=== PATIENT | female | born 1950 | race Caucasian/White ===

== ENCOUNTER 2024-01-08 07:05 | Day surgery (SDC) | payer MEDICARE, SELFPAY ==
[2024-01-08 07:10] VITALS: BP 135/69; PULSE 76; RESP 16; TEMP 36.4; O2SAT 95
--- NOTE | 2024-01-08 07:47 | ANES.PREOP_ITS ---
General Info Date of Service Date Performed: 01/08/24 Height: 5 ft Weight: 47.3 kg Body Mass Index (BMI): 20.3 Surgical Procedure: Operation Date: 01/08/24 08:25 Proposed Procedure Side Surgeon p Cataract Extraction with IOL Implant Left Darron Yan MD Meds Allergies and Home Medications Allergies Allergy/AdvReac Type Severity Reaction Status Date / Time Influenza Virus Vaccines Allergy Other (See Verified 01/08/24 07:20 Comment) Home Medication Medication Instructions Recorded albuterol sulfate 90 mcg/actuation 2 inh inhalation Q4H PRN 01/06/24 aerosol inhaler (ProAir HFA) atorvastatin 10 mg tablet 10 mg PO DAILY 01/06/24 umeclidinium 62.5 mcg-vilanterol 1 inh inhalation DAILY 01/06/24 25 mcg/actuation powdr for inhalation (Anoro Ellipta) Current Visit Medications: Current Medications Generic Name Dose Route Start Last Admin Trade Name Freq PRN Reason Stop Dose Admin Acetaminophen 1,000 mg 01/08/24 06:00 Acetaminophen 500 Mg Tab PO 02/07/24 05:59 Q4H PRN PRN Balanced Salt Solution 500 ml 01/08/24 06:00 Balanced Salt Soln.-Plus 500 Ml Bag OP 02/07/24 05:59 DIRECTED ROSALINE Miscellaneous Medication 0 ml 01/08/24 06:00 Prednisolone 1%, Moxifloxacin 0.5%, Bromfenac 0.09% 5ml Btl OS 02/07/24 05:59 DIRECTED ROSALINE Miscellaneous Medication 0 ml 01/08/24 06:00 01/08/24 07:42 Tropicam./Phenyleph. 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 Non-toxic uninodular goiter Osteoarthrosis Sciatica Left shoulder tendonitis Left knee pain Insomnia Hypoxia HLD (hyperlipidemia) SIOBHAN (generalized anxiety disorder) Disorder of bone CAD (coronary artery disease) [place] lesion of lung COPD (chronic obstructive pulmonary disease) Abnormal weight loss Abdominal aortic ectasia unchanged from 03/2023 3.7cm x 3.8cm Surgical History Surgical History Hx of tubal ligation Hx of arthroscopic knee surgery Hx of colonoscopy Tobacco Smoking/Tobacco Use Status: Current every day Tobacco Type: cigarettes Alcohol Alcohol Intake: never Substance Use Substance use type: does not use Vital Signs and Lab Results Vital Signs Most Recent Vital Signs in EMR: Most Recent Vital Signs Temp Pulse Resp BP Pulse Ox 36.4 C L 76 16 135/69 95 01/08/24 07:10 01/08/24 07:10 01/08/24 07:10 01/08/24 07:10 01/08/24 07:10 Lab Results Blood Type / Crossmatch: No Data to Display Complete Blood Count: No Data to Display Complete Metabolic Panel: No Data to Display Liver Function Panel: No Data to Display Coagulation Panel: No Data to Display Cardiac Panel: No Data to Display Arterial Blood Gas: No Data to Display Venous Blood Gas: No Data to Display Pancreas Panel: No Data to Display Thyroid Panel: No Data to Display Infectious Disease: No Data to Display Blood Cultures: No Data to Display Toxicology Panel: No Data to Display Anesthesia Assessment and Plan Anesthesia History Personal History: No History of Anesthesia Complications Family History: No Family History of Anesthesia Complications Exercise Tolerance Exercise Tolerance: Metabolic Equivalents<4 Cardiac & Pulmonary Exam Cardiac Exam: Normal S1/S2 Heart Sounds Pulmonary Exam: Clear Bilateral Breath Sounds Implantable Cardiac Device Does patient have a Pacemaker or an ICD?: No Airway Exam Known Difficult Airway: No Mallampati Class: 1 Mouth Opening: Normal (> 3cm) Thyromental Distance: Greater than 3 cm Neck Range of Motion: Full ROM Neck Circumference: Normal Teeth Condition: Removable Dentures/Plates Upper, Removable Dentures/Plates Lower and Other (Few teeth on bottom) ASA Classification ASA Score: ASA 4 Emergency Case?: No NPO Status NPO Status: NPO Clears >2 hours, Solids >8 hours Anesthesia Plan Resuscitation Status: Full Code Anesthesia Technique: MAC Anesthesia Airway Planned: Natural Airway Monitors Used: Standard Monitors
[2024-01-08 08:14] VITALS: BMI 20.3
[2024-01-08] MEDS: Duovisc Viscoelastic System EACH 1 EACH (08:37)
[2024-01-08] MEDS: Lidocaine 1% Pres-Free 5 ML VIAL (08:38)
[2024-01-08] MEDS: Povidone-Iodine Ophth 30 ML BTL (08:41)
[2024-01-08] MEDS: Balanced Salt Soln.-PLUS 500 ML BAG OP (08:41)
[2024-01-08] MEDS: Tetracaine 0.5% 4 ML BTL OS (08:42)
[2024-01-08 09:00] VITALS: BP 156/63; PULSE 77; RESP 14; TEMP 36.3; O2SAT 95
--- NOTE | 2024-01-08 09:00 | ROE_ITS ---
Date of service: 01/08/24 Time of Service: 09:01 Operative Note Operative Note POST-OP DIAGNOSIS: same PROCEDURE: Cataract extraction using phacoemulsification with intraocular lens implant, left eye SURGEON: Darron Yan ANESTHESIA TYPE: Local By Surgeon and MAC Refer to Anesthesia Record PATHOLOGY: none sent COMPLICATIONS: None Patient was transported to: same day Patient's condition: stable Implants: Mukul Clareon [id number] Indications: Progressive decreased vision due to cataract, left eye Procedure Description: CATARACT SURGERY OPERATIVE REPORT PREOPERATIVE DIAGNOSIS: Nuclear cataract, left eye POSTOPERATIVE DIAGNOSIS: Same OPERATION: Cataract extraction using phacoemulsification with posterior chamber intraocular lens implant, left eye. IOL: IOL Chief Executive Or Managing Director/Model: Mukul Clareon [id number] IOL Power: + 20.0 diopters IOL Serial Number: [id number] Optic Diameter: 6.0mm Haptic/Overall Diameter: 13.0mm PHACO INFO: Mukul Centurion Vision System with OZil and Active Fluidics Cumulative Dispersed Energy (CDE): 11.82 seconds SURGEON: Darron Yan MD, SUMAYA ANESTHESIA: Monitored Anesthesia Care (MAC), with local sub-tenon's anesthetic infiltration COMPLICATIONS: None SPECIMENS: None INDICATIONS FOR PROCEDURE: The patient is a 73-year-old lady with history of diminished visual acuity in her left eye secondary to the development of nuclear cataract. She is significantly symptomatic that she desires cataract surgery and attempt to improve and maximize her vision. See office notes for detailed information. PROCEDURE: The correct surgical eye was identified and marked as the left eye and the pupil was dilated in the preoperative area using mydriatics and cycloplegics. The dilated pupil size was 6.0 mm. The patient elected to proceed without oral sedation. The patient was brought to the operating room where cardiopulmonary monitoring was instituted and surgical time-out was performed, confirming the correct operative eye and IOL power. Topical anesthesia was administered and ophthalmic povidone-iodine 5% was instilled into the conjunctival fornices. The ofe-ocular area was prepped with Betadine 10% solution and draped in the usual sterile fashion for intraocular surgery, including an aperture drape. A Tegaderm transparent film dressing was cut in half and used to cover the lashes and lid margins. Care was taken to sequester the lashes and lid margins under the Tegaderm dressing. A lid speculum was placed between the lids of the operative eye and the Mukul LuxOR Revalia operating microscope was maneuvered into position. Esperanza scissors were then used to make a conjunctival buttonhole approximately 6mm posterior to the limbus in the inferonasal quadrant. Blunt dissection was carried out to expose bare sclera, and a blunt-tipped sub-tenon?s anesthesia cannula was introduced and passed posteriorly along the globe where non- preserved plain lidocaine was injected into posterior sub-Tenon?s space. A sideport knife was used to make a paracentesis port. Intraocular phenylephrine/lidocaine was injected into the anterior chamber. The anterior chamber was then filled with viscoelastic. A keratome knife was used construct a two-plane clear corneal tunnel extending 2.0mm into clear cornea. A flap was raised on the anterior capsule and capsulorhexis forceps were used to complete a continuous curvilinear capsulorhexis of 5.0 mm. Balanced salt solution was then used to perform cortical cleaving hydrodissection and nuclear hydrodelineation until the lens could be freely rotated within the capsular bag. The lens nucleus was then disassembled and removed within the capsular bag and iris plane using phacoemulsification. Residual cortical material was removed using the irrigation/aspiration handpiece. The posterior capsule was carefully polished to remove as much residual lens epithelial cells as safely possible. The capsular bag was then inflated and the anterior chamber deepened with viscoelastic. The lens implant described above was inserted into the capsular bag using the Mukul Autonome Injector. A Kuglen hook was used to dial the IOL into position. Residual viscoelastic was then removed first from posterior to the IOL, then from the anterior chamber using the I/A handpiece. The lens implant was noted to center nicely within the capsular bag. The incisions were stromally hydrated, and the anterior chamber was reformed using BSS. Then 0.5cc of moxifloxacin 1.0mg/ml were injected into the capsular bag and anterior chamber. The incisions were checked with a Weck spear and found to be secure. Several drops of ophthalmic povidone-iodine 5% were then applied to the eye followed by two drops of combination steroid/NSAID/antibiotic solution. The drapes were removed and a clear plastic protective eye shield was placed over the eye. The patient was then returned to Same Day Surgery in stable condition.
--- NOTE | 2024-01-08 09:00 | W.PM.DSUDISC ---
Date of service: 01/08/24 Time of Service: 09:00 Discharge Plan Disposition Patient Disposition: Home Discharge Details Attending Provider: Darron Yan Primary Care Provider: Gretchen Gonzalez Home Meds and New Rx's Prescriptions: No Action Anoro Ellipta 62.5-25 mcg/actuation blister with device 1 inh inhalation DAILY atorvastatin 10 mg tablet 10 mg PO DAILY albuterol sulfate [ProAir HFA] 90 mcg/actuation HFA aerosol inhaler 2 inh inhalation Q4H PRN Discharge Instructions Stand Alone Forms: DSU Post-Op Cataract, Lilia Frazier (DSU) Discharge Orders Discharge Orders: Discharge Order (Routine); Ordered 01/08/24 Ordered By: Darron Yan DS: Diagnosis Discharge Diagnosis (1) Nuclear age-related cataract, left eye: Status: Resolved
--- NOTE | 2024-01-08 09:15 | W.ANESPOSTOP ---
Postoperative Evaluation Date, Time and Location Date Performed: 01/08/24 Time Performed: 09:05 Patient Location: Day Surgery Unit Vital Signs Most Recent Imported Vital Signs: Most Recent Vital Signs Temp Pulse Resp BP Pulse Ox 36.3 C L 77 14 156/63 H 95 01/08/24 09:00 01/08/24 09:00 01/08/24 09:00 01/08/24 09:00 01/08/24 09:00 Assessment Mental Status: Awake (Alert & Oriented to Patient Baseline) Airway and Respiratory Function: Patent airway with normal (patient baseline) respiratory exam Cardiovascular Function: Hemodynamically Stable Hydration Status: Adequately Hydrated Nausea & Vomiting: No Nausea or Vomiting Pain: Pt. Denies Any Pain Peripheral Nerve Block: Patient did not receive a nerve block
== END 2024-01-08 09:34 | disposition home or self-care (01) ==
PROVIDERS: PCP Registered Nurse; Visit Provider Ophthalmology
PROC: (CPT 66984; principal; 2024-01-08 08:15)
DX: H25.12 Age-related nuclear cataract, left eye (principal)
CPT/HCPCS: 66984; 00123; V2632; J2003

== ENCOUNTER 2024-01-22 07:26 | Day surgery (SDC) | payer MEDICARE, SELFPAY ==
[2024-01-22 07:46] VITALS: BP 114/75; PULSE 83; RESP 20; TEMP 36.1; O2SAT 98
--- NOTE | 2024-01-22 08:05 | W.ANESPRE ---
General Info Date of Service Date Performed: 01/22/24 Height: 5 ft Weight: 46.8 kg Body Mass Index (BMI): 20.1 Surgical Procedure: Operation Date: 01/22/24 09:40 Proposed Procedure Side Surgeon p Cataract Extraction with IOL Implant Right Darron Yan MD Meds Allergies and Home Medications Allergies Allergy/AdvReac Type Severity Reaction Status Date / Time Influenza Virus Vaccines Allergy Other (See Verified 01/22/24 07:53 Comment) Home Medication Medication Instructions Recorded albuterol sulfate 90 mcg/actuation 2 inh inhalation Q4H PRN 01/06/24 aerosol inhaler (ProAir HFA) atorvastatin 10 mg tablet 10 mg PO DAILY 01/06/24 umeclidinium 62.5 mcg-vilanterol 1 inh inhalation DAILY 01/06/24 25 mcg/actuation powdr for inhalation (Anoro Ellipta) Current Visit Medications: Current Medications Generic Name Dose Route Start Last Admin Trade Name Freq PRN Reason Stop Dose Admin Acetaminophen 1,000 mg 01/22/24 06:00 Acetaminophen 500 Mg Tab PO 02/21/24 05:59 Q4H PRN PRN Balanced Salt Solution 500 ml 01/22/24 06:00 Balanced Salt Soln.-Plus 500 Ml Bag OP 02/21/24 05:59 DIRECTED ROSALINE Miscellaneous Medication 0 ml 01/22/24 06:00 Prednisolone 1%, Moxifloxacin 0.5%, Bromfenac 0.09% 5ml Btl OD 02/21/24 05:59 DIRECTED ROSALINE Miscellaneous Medication 0 ml 01/22/24 06:00 01/22/24 08:01 Tropicam./Phenyleph. (1/2.5%) 10 Ml Btl OD 02/21/24 05:59 1 drp DIRECTED ROSALINE Administration Tetracaine HCl 0 ml 01/22/24 06:00 Tetracaine 0.5% 4 Ml Btl OD 02/21/24 05:59 DIRECTED ROSALINE PFSH Active Problems Active Problems: Problem Status Onset Code Cortical age-related cataract, right eye H25.011 Nuclear age-related cataract, right eye H25.11 Nuclear age-related cataract, left eye H25.12 Medical History Medical History Oxygen dependent 4L/24 hours a day Non-toxic uninodular goiter Osteoarthrosis Sciatica Left shoulder tendonitis Left knee pain Insomnia Hypoxia HLD (hyperlipidemia) SIOBHAN (generalized anxiety disorder) Disorder of bone CAD (coronary artery disease) [place] lesion of lung COPD (chronic obstructive pulmonary disease) Abnormal weight loss Abdominal aortic ectasia unchanged from 03/2023 3.7cm x 3.8cm Surgical History Surgical History H/O cataract removal with insertion of prosthetic lens Left Hx of tubal ligation Hx of arthroscopic knee surgery Hx of colonoscopy Tobacco Smoking/Tobacco Use Status: Current every day Tobacco Type: cigarettes Alcohol Alcohol Intake: never Substance Use Substance use type: does not use Vital Signs and Lab Results Vital Signs Most Recent Vital Signs in EMR: Most Recent Vital Signs Temp Pulse Resp BP Pulse Ox 36.1 C L 83 20 114/75 98 01/22/24 07:46 01/22/24 07:46 01/22/24 07:46 01/22/24 07:46 01/22/24 07:46 Lab Results Blood Type / Crossmatch: No Data to Display Complete Blood Count: No Data to Display Complete Metabolic Panel: No Data to Display Liver Function Panel: No Data to Display Coagulation Panel: No Data to Display Cardiac Panel: No Data to Display Arterial Blood Gas: No Data to Display Venous Blood Gas: No Data to Display Pancreas Panel: No Data to Display Thyroid Panel: No Data to Display Infectious Disease: No Data to Display Blood Cultures: No Data to Display Toxicology Panel: No Data to Display Anesthesia Assessment and Plan Anesthesia History Personal History: No History of Anesthesia Complications Family History: No Family History of Anesthesia Complications Exercise Tolerance Exercise Tolerance: Metabolic Equivalents<4 Pertinent Negatives Pertinent Negatives: No Symptoms of GERD Cardiac & Pulmonary Exam Cardiac Exam: Normal S1/S2 Heart Sounds Pulmonary Exam: Clear Bilateral Breath Sounds Implantable Cardiac Device Does patient have a Pacemaker or an ICD?: No Airway Exam Known Difficult Airway: No Mallampati Class: 1 Mouth Opening: Normal (> 3cm) Thyromental Distance: Greater than 3 cm Neck Range of Motion: Full ROM Neck Circumference: Normal Teeth Condition: Removable Dentures/Plates Upper, Removable Dentures/Plates Lower and Other (Few teeth on bottom) ASA Classification ASA Score: ASA 3 Emergency Case?: No NPO Status NPO Status: NPO Clears >2 hours, Solids >8 hours Anesthesia Plan Resuscitation Status: Full Code Anesthesia Technique: MAC Anesthesia Airway Planned: Natural Airway Monitors Used: Standard Monitors
[2024-01-22 08:06] VITALS: BMI 20.1
[2024-01-22] MEDS: Duovisc Viscoelastic System EACH 1 EACH (09:08)
[2024-01-22] MEDS: Tetracaine 0.5% 4 ML BTL OD (09:08)
[2024-01-22] MEDS: Povidone-Iodine Ophth 30 ML BTL (09:08)
[2024-01-22] MEDS: Balanced Salt Soln.-PLUS 500 ML BAG OP (09:08)
[2024-01-22] MEDS: Lidocaine 1% Pres-Free 5 ML VIAL (09:08)
[2024-01-22 09:27] VITALS: BP 133/74; PULSE 75; RESP 14; TEMP 36.5; O2SAT 97
--- NOTE | 2024-01-22 09:29 | ROE_ITS ---
Date of service: 01/22/24 Time of Service: 09:29 Operative Note Operative Note DATE OF PROCEDURE: 01/22/24 PRE-OP DIAGNOSIS: Nuclear/cortical cataract, right eye POST-OP DIAGNOSIS: same PROCEDURE: Cataract extraction using phacoemulsification with intraocular lens implant, right eye SURGEON: Darron Yan ANESTHESIA TYPE: Local By Surgeon and MAC Refer to Anesthesia Record ESTIMATED BLOOD LOSS: 0 PATHOLOGY: none sent COMPLICATIONS: None Patient was transported to: same day Patient's condition: stable Implants: Mukul Clareon [id number] Indications: Progressive decreased vision due to cataract, right eye Procedure Description: CATARACT SURGERY OPERATIVE REPORT PREOPERATIVE DIAGNOSIS: Nuclear/cortical cataract, right eye POSTOPERATIVE DIAGNOSIS: Same OPERATION: Cataract extraction using phacoemulsification with posterior chamber intraocular lens implant, right eye. IOL: IOL Customer Program Manager/Model: Mukul Clareon [id number] IOL Power: + 19.5 diopters IOL Serial Number: [id number] Optic Diameter: 6.0mm Haptic/Overall Diameter: 13.0mm PHACO INFO: [employer]urion Vision System with OZil and Active Fluidics Cumulative Dispersed Energy (CDE): 15.33 seconds SURGEON: Darron Yan MD, SUMAYA ANESTHESIA: Monitored Anesthesia Care (MAC), with local sub-tenon's anesthetic infiltration COMPLICATIONS: None SPECIMENS: None INDICATIONS FOR PROCEDURE: The patient is a 73-year-old lady with history of diminished visual acuity in both eyes secondary to the development of bilateral nuclear/cortical cataract. She has already undergone cataract surgery in the left eye and is doing well postoperatively. She now presents for cataract surgery in the right eye. See office notes for detailed information. PROCEDURE: The correct surgical eye was identified and marked as the right eye and the pupil was dilated in the preoperative area using mydriatics and cycloplegics. The dilated pupil size was 6.0 mm. The patient elected to proceed without oral sedation. The patient was brought to the operating room where cardiopulmonary monitoring was instituted and surgical time-out was performed, confirming the correct operative eye and IOL power. Topical anesthesia was administered and ophthalmic povidone-iodine 5% was instilled into the conjunctival fornices. The ofe-ocular area was prepped with Betadine 10% solution and draped in the usual sterile fashion for intraocular surgery, including an aperture drape. A Tegaderm transparent film dressing was cut in half and used to cover the lashes and lid margins. Care was taken to sequester the lashes and lid margins under the Tegaderm dressing. A lid speculum was placed between the lids of the operative eye and the Mukul LuxOR Revalia operating microscope was maneuvered into position. Esperanza scissors were then used to make a conjunctival buttonhole approximately 6mm posterior to the limbus in the inferonasal quadrant. Blunt dissection was carried out to expose bare sclera, and a blunt-tipped sub-tenon?s anesthesia cannula was introduced and passed posteriorly along the globe where non- preserved plain lidocaine was injected into posterior sub-Tenon?s space. A sideport knife was used to make a paracentesis port. Intraocular phenylephrine/lidocaine was injected into the anterior chamber. The anterior chamber was then filled with viscoelastic. A keratome knife was used to construct a two--plane clear corneal tunnel extending 2.0mm into clear cornea. A flap was raised on the anterior capsule and capsulorhexis forceps were used to complete a continuous curvilinear capsulorhexis of 5.5 mm. Balanced salt solution was then used to perform cortical cleaving hydrodissection and nuclear hydrodelineation until the lens could be freely rotated within the capsular bag. The lens nucleus was then disassembled and removed within the capsular bag and iris plane using phacoemulsification. Residual cortical material was removed using the I/A handpiece. The posterior capsule was carefully polished to remove as much residual lens epithelial cells as safely possible. The capsular bag was then inflated and the anterior chamber deepened with cohesive viscoelastic. The lens implant described above was inserted into the capsular bag using the Mukul Autonome Injector. A Kuglen hook was used to dial the IOL into position. Residual viscoelastic was then removed first from posterior to the IOL, then from the anterior chamber using the I/A handpiece. The lens implant was noted to center nicely within the capsular bag. The incisions were stromally hydrated, and the anterior chamber was reformed using BSS. Then 0.5cc of moxifloxacin 1.0mg/ml were injected into the capsular bag and anterior chamber. The incisions were checked with a Weck spear and found to be secure. Several drops of ophthalmic povidone-iodine 5% were then applied to the eye followed by two drops of combination steroid/NSAID/antibiotic solution. The drapes were removed and a clear plastic protective eye shield was placed over the eye. The patient was then returned to Same Day Surgery in stable condition.
--- NOTE | 2024-01-22 09:29 | W.PM.DSUDISC ---
Date of service: 01/22/24 Time of Service: 09:29 Discharge Plan Disposition Patient Disposition: Home Discharge Details Attending Provider: Darron Yan Primary Care Provider: Gretchen Gonzalez Home Meds and New Rx's Prescriptions: No Action Anoro Ellipta 62.5-25 mcg/actuation blister with device 1 inh inhalation DAILY atorvastatin 10 mg tablet 10 mg PO DAILY albuterol sulfate [ProAir HFA] 90 mcg/actuation HFA aerosol inhaler 2 inh inhalation Q4H PRN Discharge Instructions Stand Alone Forms: DSU Post-Op Cataract, Lilia Frazier (DSU) Discharge Orders Discharge Orders: Discharge Order (Routine); Ordered 01/22/24 Ordered By: Darron Yan DS: Diagnosis Discharge Diagnosis (1) Cortical age-related cataract, right eye: Status: Resolved
--- NOTE | 2024-01-22 09:41 | W.ANESPOSTOP ---
Postoperative Evaluation Date, Time and Location Date Performed: 01/22/24 Time Performed: 09:42 Patient Location: Day Surgery Unit Vital Signs Most Recent Imported Vital Signs: Most Recent Vital Signs Temp Pulse Resp BP Pulse Ox 36.5 C 75 14 133/74 97 01/22/24 09:27 01/22/24 09:27 01/22/24 09:27 01/22/24 09:27 01/22/24 09:27 Pain Score Most Recent Pain Score: Most Recent Pain Score Pain Level 0 01/22/24 09:27 Assessment Mental Status: Awake (Alert & Oriented to Patient Baseline) Airway and Respiratory Function: Patent airway with normal (patient baseline) respiratory exam Cardiovascular Function: Hemodynamically Stable Hydration Status: Adequately Hydrated Nausea & Vomiting: No Nausea or Vomiting Pain: Pt. Denies Any Pain Peripheral Nerve Block: Patient did not receive a nerve block
== END 2024-01-22 09:57 | disposition home or self-care (01) ==
LOC: SUR 07:26
PROVIDERS: PCP Registered Nurse; Visit Provider Ophthalmology
PROC: (CPT 66984; principal; 2024-01-22 09:30)
DX: H25.011 Cortical age-related cataract, right eye (principal); Z98.42 Cataract extraction status, left eye
CPT/HCPCS: 66984; 00123; V2632; J2003